=== PATIENT | male | born 1985 | race Hispanic/Latino ===

== ENCOUNTER 2017-07-14 00:38 | Emergency (ER) | payer BC, OTHER, SELFPAY ==
[2017-07-14 01:47] LABS: #Eosinphils 0.1 thou/uL (0.0-0.7); #Lymphocytes 2.1 thou/uL (1.20-3.40); #Monocytes 0.7 thou/uL (0.11-0.59); #Neutrophils 7.4 thou/uL (1.40-6.50); %Basophils 0.3 % (0.0-1.0); %Eosinophils 1.1 % (0.0-10.0); %Lymphocytes 20.5 % (21.0-51.0); %Monocytes 7.2 % (0.0-10.0); Red Blood Cell (RBC) Count 4.91 mill/uL (4.70-6.10); White Blood Cell (WBC) Count 10.3 thou/uL (4.8-10.8)
[2017-07-14 02:01] LABS: ALT (SGPT) 35 U/L (8-55); AST (SGOT) 20 U/L (5-34); Alkaline Phosphatase 76 U/L (40-150); Anion Gap 11 mmol/L (10-20); BUN (Urea Nitrogen) 15 mg/dL (8.9-20.6); Bilirubin, Total 0.4 mg/dL (0.2-1.2); CK (CPK) 115 U/L (30-200); Calc. Creatinine Clearance 0 mL/min (70-130); Calcium 8.8 mg/dL (7.8-10.44); Carbon Dioxide 27 mmol/L (22-29); Chloride 102 mmol/L (98-107); Estimated GFR-MDRD 86; Globulin 3.3 g/dL (2.4-3.5); Lipase 16 U/L (8-78); Protein, Total 7.1 g/dL (6.0-8.3)
[2017-07-14 02:04] LABS: Troponin I Less than 0.010 ng/mL (< 0.028)
[2017-07-14 04:19] LABS: Troponin I Less than 0.010 ng/mL (< 0.028)
--- NOTE | 2017-07-14 08:01 | RAD ---
PORTABLE CHEST ONE VIEW: 07/14/2017 1:12 a.m. HISTORY: Shortness of breath. FINDINGS: The heart size is normal. A mild infiltrate is seen in the lingula. No pneumothoraces or pleural e ffusions are identified. POS: [facility]
== END 2017-07-14 04:48 | disposition home or self-care (01) ==
LOC: ERS 00:38
DX: R07.9 Chest pain, unspecified (principal); M10.9 Gout, unspecified; E66.01 Morbid (severe) obesity due to excess calories; I10 Essential (primary) hypertension; R19.7 Diarrhea, unspecified
CPT/HCPCS: 36415; 71010; 80053; 82550; 82553; 83690; 83880; 84484; 85025; 93005; 96360

== ENCOUNTER 2022-11-15 10:43 | Emergency (ER) | payer BC | END 2022-11-15 17:27 | disposition home or self-care (01) | LOC: ERS 10:43 | DX: R22.1 Localized swelling, mass and lump, neck (principal); I10 Essential (primary) hypertension | CPT/HCPCS: 76999 ==